=== PATIENT | female | born 1975 ===

== ENCOUNTER 2016-09-11 04:03 | Inpatient (IN) | payer SELFPAY ==
[2016-09-11] VITALS (42 sets, daily range): BP systolic 103–144; BP diastolic 58–91
[~2016-09-11] VITALS: Ht 162.6 cm; Wt 73.2 kg
[2016-09-11] MEDS ORDERED: LACTATED RINGER'S 1,000 ML IV SCH (04:05)
[2016-09-11] MEDS ORDERED: OXYTOCIN 10UNIT/ML 1ML VIAL IM ONE ×2 (04:05)
[2016-09-11] MEDS ORDERED: LACT. RINGERS/OXYTOCIN 20UNITS 1,000 ML IV SCH (04:12)
[2016-09-11] MEDS ORDERED: hydrALAZINE HCL 20 MG/ML VL ONE (04:39)
[2016-09-11] MEDS ORDERED: hydrALAZINE HCL 20 MG/ML VL IV ONE ×4 (04:45→04:55)
[2016-09-11] MEDS ORDERED: MAGNESIUM SULFATE 40MG/ML 1,000 ML IV ONE (04:50)
[2016-09-11] MEDS ORDERED: FUROSEMIDE 20 MG/2 ML VIAL ONE (05:08)
[2016-09-11] MEDS ORDERED: FUROSEMIDE 20 MG/2 ML VIAL IV ONE (05:14)
[2016-09-11] MEDS ORDERED: cloNIDine HCL 0.1 MG TAB ONE (05:15)
[2016-09-11] MEDS ORDERED: ALBUTEROL SULF 2.5 MG/0.5ML(0.5%) NEB SOLN ONE ×2 (05:21→05:48)
[2016-09-11 05:22] LABS: Basophils # (auto) 0.2 uL; Basophils % (auto) 1.2 % (0.0-2.0); CONDITION Y; Eosinophils # (auto) 0 uL; Eosinophils % (auto) 0.1 % (0.0-7.0); Hematocrit 39.1 % (36.0-46.0); Lymphocytes # (auto) 3.9 uL; Lymphocytes % (auto) 19.9 % (10.0-50.0); Mean Corpuscular Hemoglobin 29.6 pg (28.0-32.0); Mean Corpuscular Hgb Conc. 33.3 g/dL (32.0-36.0); Mean Corpuscular Volume 89.1 fL (80.0-100.0); Mean Platelet Volume 12.1 fL (7.4-10.4); Monocytes # (auto) 1.1 uL; Monocytes % (auto) 5.7 % (0.0-12.0); Neutrophils # (auto) 14.4 uL; Neutrophils % (auto) 73.1 % (37.0-80.0); Platelet Count (auto) 113 10^3/uL (140-450); Red Cell Distribution Width 18.2 % (11.6-16.0); SUSPECT SEE PRINTOUT; White Blood Cell 19.8 10^3/uL (4.4-10.8)
[2016-09-11] MEDS: MAGNESIUM SULFATE 40MG/ML 1,000 ML IV SCH ×2 (05:27→09:32)
[2016-09-11 05:29] LABS: INR 0.92 (0.9-1.15); Partial Thromboplastin Time 28.7 sec (22.64-33.71)
[2016-09-11] MEDS ORDERED: ALBUTEROL SULF 2.5 MG/0.5ML(0.5%) NEB SOLN NEB ONE ×2 (05:30→05:45)
[2016-09-11 05:33] LABS: BUN/Creatinine Ratio 10.9; Calcium 7.9 mg/dL (8.5-10.1); Potassium 4.4 mmol/L (3.5-5.1)
[2016-09-11 05:36] LABS: Bilirubin, Total 0.2 mg/dL (0.2-1.0); Total Protein 5.9 g/dL (6.4-8.2)
[2016-09-11 06:25] LABS: B-Type Natriuretic Peptide 579.48 pg/mL (0-100)
[2016-09-11] MEDS ORDERED: ALBUTEROL SULF 2.5 MG/0.5ML(0.5%) NEB SOLN NEB PRN (06:45)
[2016-09-11] MEDS ORDERED: LABETALOL HCL 5 MG/ML 4ML SYRINGE IV ONE (06:45)
[2016-09-11] MEDS ORDERED: HYDROcodone-ACET 5/325MG TAB PO PRN (06:45)
[2016-09-11] MEDS ORDERED: IPRATROPIUM BROM 0.5 MG/2.5ML INH SOL NEB ONE (06:45)
[2016-09-11] MEDS ORDERED: IPRATROPIUM BROM 0.5 MG/2.5ML INH SOL NEB PRN (06:45)
[2016-09-11] MEDS: methylPREDNISolone SOD SUCC 125 MG/2 ML VL IV ONE ×2 (06:45→09:32)
[2016-09-11] MEDS ORDERED: ONDANSETRON HCL 4 MG/2 ML VIAL IV PRN (06:45)
[2016-09-11] MEDS ORDERED: ACETAMINOPHEN 325 MG TAB PO PRN (06:45)
[2016-09-11] MEDS ORDERED: MORPHINE SULF INJ 2 MG/ML SYRINGE 1ML IV PRN ×2 (06:45)
[2016-09-11] MEDS ORDERED: NITROGLYCERIN 0.4 MG SL TAB SL PRN (06:45)
[2016-09-11] MEDS ORDERED: cloNIDine HCL 0.1 MG TAB PO PRN (07:00)
[2016-09-11] MEDS: ASPirin 81 mg TAB PO ONE ×2 (07:00→09:31)
[2016-09-11 07:43] LABS: Urine Bilirubin Negative (Negative); Urine Color Yellow (Yellow); Urine Glucose Normal (Normal); Urine Hyaline Cast FEW /lpf (0 - 2); Urine Ketone Negative (Negative); Urine Nitrite Negative (Negative); Urine RBC 192 /hpf (0 - 4); Urine Squamous Epithelial Cell FEW /hpf (<5); Urine Urobilinogen Normal (Negative)
[2016-09-11 07:45] LABS: Urine Blood 2+ /uL (Negative)
[2016-09-11] MEDS ORDERED: OXYTOCIN 10UNIT/ML 1ML VIAL ONE (08:36)
[2016-09-11] MEDS: SODIUM CHLORIDE 0.9% 1,000 ML IV SCH ×2 (09:19→09:32)
[2016-09-11] MEDS: LEVOFLOXACIN 750MG 150 ML IV SCH (09:31)
[2016-09-11] MEDS ORDERED: ENOXAPARIN SOD 40 MG/0.4 ML SYRINGE SC SCH (10:00)
[2016-09-11] MEDS ORDERED: ENOXAPARIN SOD 80 MG/0.8ML SYRINGE SC ONE (10:00)
[2016-09-11 10:43] LABS: BUN/Creatinine Ratio 12.4; Calcium 8.2 mg/dL (8.5-10.1); Potassium 4.1 mmol/L (3.5-5.1)
[2016-09-11] MEDS ORDERED: METOPROLOL TARTRATE 50 MG TAB PO ONE (12:15)
[2016-09-11] MEDS ORDERED: FUROSEMIDE 40 MG/4 ML VIAL IV ONE (15:15)
[2016-09-11 16:24] LABS: Hematocrit 34.2 % (36.0-46.0); Hemoglobin 11.8 g/dL (12.2-16.2)
[2016-09-11 21:52] LABS: BUN/Creatinine Ratio 12.2; Calcium 6.9 mg/dL (8.5-10.1); Magnesium,Therapeutic 4.5 mg/dL (4.0-7.1); Potassium 4.2 mmol/L (3.5-5.1)
[2016-09-12] VITALS (28 sets, daily range): BP systolic 93–138; BP diastolic 50–90
[2016-09-12] MEDS: METOPROLOL TARTRATE 50 MG TAB PO SCH ×3 (00:30→21:53)
[2016-09-12 05:14] LABS: Basophils # (auto) 0 uL; Basophils % (auto) 0.2 % (0.0-2.0); CONDITION Y; Eosinophils # (auto) 0 uL; Eosinophils % (auto) 0.1 % (0.0-7.0); Hematocrit 33.8 % (36.0-46.0); Hemoglobin 11.4 g/dL (12.2-16.2); Lymphocytes # (auto) 2.7 uL; Lymphocytes % (auto) 15.5 % (10.0-50.0); Mean Corpuscular Hemoglobin 29.5 pg (28.0-32.0); Mean Corpuscular Hgb Conc. 33.9 g/dL (32.0-36.0); Mean Corpuscular Volume 87.2 fL (80.0-100.0); Mean Platelet Volume 14.5 fL (7.4-10.4); Monocytes # (auto) 1.3 uL; Monocytes % (auto) 7.5 % (0.0-12.0); Neutrophils # (auto) 13.1 uL; Neutrophils % (auto) 76.7 % (37.0-80.0); Platelet Count (auto) 99 10^3/uL (140-450); Red Cell Distribution Width 17.9 % (11.6-16.0); SUSPECT SEE PRINTOUT; White Blood Cell 17.1 10^3/uL (4.4-10.8)
[2016-09-12 05:46] LABS: Albumin 1.9 g/dL (3.4-5.0); Bilirubin, Total 0.2 mg/dL (0.2-1.0); Calcium 7.3 mg/dL (8.5-10.1); Potassium 3.9 mmol/L (3.5-5.1); Total Protein 5.5 g/dL (6.4-8.2)
[2016-09-12] MEDS ORDERED: hydrALAZINE HCL 20 MG/ML VL IV PRN (07:00)
[2016-09-12] MEDS: LEVOFLOXACIN 750MG 150 ML IV SCH (07:00)
[2016-09-12] MEDS ORDERED: ASPirin 81 mg TAB PO SCH (10:00)
[2016-09-12] MEDS ORDERED: FUROSEMIDE 40 MG/4 ML VIAL IV SCH (10:00)
[2016-09-12] MEDS: ASPirin 81 mg TAB PO SCH (10:46)
[2016-09-12] MEDS: ENOXAPARIN SOD 40 MG/0.4 ML SYRINGE SC SCH (10:47)
[2016-09-12] MEDS: FUROSEMIDE 20 MG/2 ML VIAL IV SCH (10:47)
[2016-09-13] VITALS (7 sets, daily range): BP systolic 124–152; BP diastolic 60–76
[2016-09-13 04:40] LABS: Basophils # (auto) 0 uL; Basophils % (auto) 0.3 % (0.0-2.0); CONDITION Y; Eosinophils # (auto) 0 uL; Eosinophils % (auto) 0.2 % (0.0-7.0); Hematocrit 29.4 % (36.0-46.0); Hemoglobin 10.3 g/dL (12.2-16.2); Lymphocytes # (auto) 3.3 uL; Lymphocytes % (auto) 24.7 % (10.0-50.0); Mean Corpuscular Hemoglobin 30.6 pg (28.0-32.0); Mean Corpuscular Hgb Conc. 34.9 g/dL (32.0-36.0); Mean Corpuscular Volume 87.6 fL (80.0-100.0); Mean Platelet Volume 14.8 fL (7.4-10.4); Monocytes # (auto) 1.4 uL; Monocytes % (auto) 10.3 % (0.0-12.0); Neutrophils # (auto) 8.6 uL; Neutrophils % (auto) 64.5 % (37.0-80.0); Platelet Count (auto) 131 10^3/uL (140-450); SUSPECT SEE PRINTOUT; White Blood Cell 13.3 10^3/uL (4.4-10.8)
[2016-09-13 05:21] LABS: Calcium 7.6 mg/dL (8.5-10.1); Potassium 4.1 mmol/L (3.5-5.1)
[2016-09-13] MEDS: ENOXAPARIN SOD 40 MG/0.4 ML SYRINGE SC SCH (10:00)
[2016-09-13] MEDS: FUROSEMIDE 20 MG/2 ML VIAL IV SCH (10:25)
[2016-09-13] MEDS: METOPROLOL TARTRATE 50 MG TAB PO SCH (10:25)
[2016-09-13] MEDS: ASPirin 81 mg TAB PO SCH (10:25)
[2016-09-13] MEDS ORDERED: ASPI81TA27 PO (14:12)
[2016-09-13] MEDS ORDERED: FURO20TA PO (14:12)
[2016-09-13] MEDS ORDERED: MET50T PO (14:13)
[2016-09-13] MEDS ORDERED: POTA10TA79 PO (14:13)
== END 2016-09-13 15:30 | disposition home or self-care (01) | DRG 774 ==
LOC: LDRP 04:03 → OBSVTOIN 04:03 → ICU WEST 08:19
PROVIDERS: ADMIT Specialist; ATTEND Specialist
PROC: 10E0XZZ Delivery of Products of Conception, External Approach (ICD-10-PCS; principal; 2016-09-11)
DX: O66.0 Obstructed labor due to shoulder dystocia (principal); O86.89 Other specified puerperal infections; I16.1 Hypertensive emergency; O99.12 Other diseases of the blood and blood-forming organs and certain disorders involving the immune mechanism complicating childbirth; I50.40 Unspecified combined systolic (congestive) and diastolic (congestive) heart failure; I42.9 Cardiomyopathy, unspecified; I16.9 Hypertensive crisis, unspecified; O99.43 Diseases of the circulatory system complicating the puerperium; R65.10 Systemic inflammatory response syndrome (SIRS) of non-infectious origin without acute organ dysfunction; Z37.0 Single live birth; Z3A.40 40 weeks gestation of pregnancy; O26.893 Other specified pregnancy related conditions, third trimester; D72.829 Elevated white blood cell count, unspecified; I34.0 Nonrheumatic mitral (valve) insufficiency; I11.0 Hypertensive heart disease with heart failure; D64.9 Anemia, unspecified; Z82.49 Family history of ischemic heart disease and other diseases of the circulatory system; O77.0 Labor and delivery complicated by meconium in amniotic fluid; O14.95 Unspecified pre-eclampsia, complicating the puerperium; I44.7 Left bundle-branch block, unspecified; R73.9 Hyperglycemia, unspecified; O90.81 Anemia of the puerperium; O09.523 Supervision of elderly multigravida, third trimester
CPT/HCPCS: 36415; 51702; 59409; 71010; 80048; 80053; 80307; 81001; 82553; 82962; 83036; 83735; 83880; 84484; 84550; 85014; 85018; 85025; 85379; 85610; 85730; 86592; 86703; 86762; 86850; 86900; 86901; 87040; 87070; 87081; 87205; 87340; 93005; 93306; 94640; 94760; 96361; 96365; 96366; 96372; 96374; 96375; J1956; J3490

== ENCOUNTER → 2016-09-25 | Outpatient (CLI) | payer MEDICAID ==
[~2016-09-25] MED LIST: ASPI81TA27 PO; FURO20TA PO; MET50T PO; POTA10TA79 PO
[2016-09-25 12:51] LABS: Basophils # (auto) 0 uL; Basophils % (auto) 0.5 % (0.0-2.0); CONDITION Y; Eosinophils # (auto) 0.1 uL; Eosinophils % (auto) 1.9 % (0.0-7.0); Hematocrit 34.4 % (36.0-46.0); Hemoglobin 11.8 g/dL (12.2-16.2); Lymphocytes # (auto) 2.2 uL; Lymphocytes % (auto) 32.9 % (10.0-50.0); Mean Corpuscular Hemoglobin 29.9 pg (28.0-32.0); Mean Corpuscular Hgb Conc. 34.2 g/dL (32.0-36.0); Mean Corpuscular Volume 87.7 fL (80.0-100.0); Mean Platelet Volume 11.1 fL (7.4-10.4); Monocytes # (auto) 0.7 uL; Monocytes % (auto) 10.7 % (0.0-12.0); Neutrophils # (auto) 3.6 uL; Platelet Count (auto) 287 10^3/uL (140-450); White Blood Cell 6.7 10^3/uL (4.4-10.8)
[2016-09-25 13:02] LABS: BUN/Creatinine Ratio 23.1; Calcium 8.7 mg/dL (8.5-10.1); Magnesium 2.6 mg/dL (1.6-2.6); Potassium 4.5 mmol/L (3.5-5.1)
== END | disposition home or self-care (01) ==
LOC: Rad HDHVI 09:50
PROVIDERS: ATTEND Internal Medicine Cardiovascular Disease
DX: I10 Essential (primary) hypertension (principal); D64.9 Anemia, unspecified; E83.42 Hypomagnesemia
CPT/HCPCS: 36415; 80048; 83735; 85025; 93306

== ENCOUNTER → 2016-11-27 | Outpatient (CLI) | payer MEDICAID | END | disposition home or self-care (01) | LOC: Rad HDHVI 08:05 | PROVIDERS: ATTEND Internal Medicine Cardiovascular Disease | DX: O09.529 Supervision of elderly multigravida, unspecified trimester (principal); O90.3 Peripartum cardiomyopathy; Z3A.00 Weeks of gestation of pregnancy not specified | CPT/HCPCS: 93306 ==

== ENCOUNTER → 2017-06-22 | Outpatient (CLI) | payer MEDICAID | END | disposition home or self-care (01) | LOC: Rad HDHVI 15:41 | PROVIDERS: ATTEND Internal Medicine Cardiovascular Disease | DX: I08.0 Rheumatic disorders of both mitral and aortic valves (principal); O90.3 Peripartum cardiomyopathy; R00.0 Tachycardia, unspecified | CPT/HCPCS: 93306 ==